=== PATIENT | female | born 1960 | race Hispanic/Latino ===

== ENCOUNTER 2020-01-26 10:38 | Emergency (ER) | payer SELFPAY | END 2020-01-26 11:02 | disposition home or self-care (01) | LOC: EDH 10:38 | DX: R10.11 Right upper quadrant pain (principal); R11.2 Nausea with vomiting, unspecified; E11.9 Type 2 diabetes mellitus without complications; I10 Essential (primary) hypertension; Z98.890 Other specified postprocedural states | CPT/HCPCS: 99281 ==